=== PATIENT | female | born 1995 | race Caucasian/White ===

== ENCOUNTER 2017-12-15 21:44 | Observation (INO) | payer OTHER, MEDICAID ==
[~2017-12-15] VITALS: Ht 162.6 cm; Wt 89.0 kg
[2017-12-15] MEDS ORDERED: LABETALOL 100 MG TABLET ONE (22:58)
[2017-12-15] MEDS ORDERED: LABETALOL 200 MG TABLET PO ONE (23:00)
[2017-12-15] MEDS ORDERED: PLEASE ENTER ALLERGIES MC SCH (23:00)
[2017-12-15 23:07] LABS: BASOPHILS # (AUTO) 0.08 x10^3/uL (0-0.1); BASOPHILS % (AUTO) 1 % (0-1); EOSINOPHILS % (AUTO) 0 % (1-7); LYMPHOCYTES # (AUTO) 2.54 x10^3/uL (1-3.4); LYMPHOCYTES % (AUTO) 25 % (22-44); MD NO; MEAN CORPUSCULAR HEMOGLOBIN 34.4 pg (27.0-34.8); MEAN CORPUSCULAR HGB CONC 34.9 g/dL (32.4-35.8); MEAN CORPUSCULAR VOLUME 98.8 fL (80-100); MEAN PLATELET VOLUME 7.8 fL (7.4-10.4); MONOCYTES # (AUTO) 0.66 x10^3/uL (0.2-0.8); MONOCYTES % (AUTO) 7 % (2-9); NEUTROPHILS # (AUTO) 6.86 x10^3/uL (1.8-6.8); NEUTROPHILS % (AUTO) 68 % (42-75); PLATELET COUNT 307 x10^3/uL (130-400); RED BLOOD COUNT 3.77 x10^6/uL (3.82-5.3); RED CELL DISTRIBUTION WIDTH 13.3 % (9.6-15.2)
[2017-12-15 23:19] LABS: ALANINE AMINOTRANSFERASE 16 U/L (12-78); ALBUMIN 2.8 g/dL (3.4-5.0); ANION GAP 9 mmol/L (5-15); CALCIUM 9.2 mg/dL (8.5-10.1); CHLORIDE 109 mmol/L (98-107); CREATININE 0.69 mg/dL (0.55-1.02)
[2017-12-15 23:21] LABS: ALKALINE PHOSPHATASE 130 U/L (45-117); BILIRUBIN,TOTAL 0.2 mg/dL (0.2-1.0); TOTAL PROTEIN 6.8 g/dL (6.4-8.2)
[2017-12-15 23:23] LABS: BILIRUBIN, DIRECT < 0.1 mg/dL (0.1-0.2)
[2017-12-15 23:40] LABS: MICROSCOPIC INDICATED
== END 2017-12-16 01:35 | disposition home or self-care (01) ==
LOC: LDOP 21:44 → LDIP 23:35
PROVIDERS: ADMIT Obstetrics & Gynecology; ATTEND Obstetrics & Gynecology
DX: O42.92 Full-term premature rupture of membranes, unspecified as to length of time between rupture and onset of labor (principal); O13.3 Gestational [pregnancy-induced] hypertension without significant proteinuria, third trimester; Z3A.38 38 weeks gestation of pregnancy
CPT/HCPCS: 36415; 59025; 80053; 81001; 82248; 82570; 83615; 84156; 84550; 85025; 86850; 86900; 89060; G0378; Q0114

== ENCOUNTER 2017-12-18 22:01 | Inpatient (IN) | payer OTHER, MEDICAID ==
[~2017-12-18] VITALS: Ht 162.6 cm; Wt 89.0 kg
[~2017-12-18 22:01] MED LIST: PENICILLIN GK 5,000,000 UNITS in SODIUM CHLORIDE 0.9% 100 ML IV ONE
[2017-12-18] MEDS ORDERED: LACTATED RINGERS 1,000 ML IV SCH ×2 (22:02→22:30)
[2017-12-18] MEDS: OXYTOCIN 30U/ 0.9% NaCL 500ML 500 ML IV SCH ×2 (22:02→23:57)
[2017-12-18] MEDS ORDERED: OXYTOCIN 30U/ 0.9% NaCL 500ML 500 ML ONE (22:17)
[2017-12-18] MEDS ORDERED: METOCLOPRAMIDE 5 MG/ML, 2ML ONE (22:17)
[2017-12-18] MEDS ORDERED: NEWBORN KIT ONE (22:17)
[2017-12-18] MEDS ORDERED: SODIUM CITRATE/CITRIC ACID 30 ML UDC ONE (22:17)
[2017-12-18 22:28] LABS: BASOPHILS # (AUTO) 0.06 x10^3/uL (0-0.1); BASOPHILS % (AUTO) 1 % (0-1); EOSINOPHILS # (AUTO) 0.07 x10^3/uL (0-0.4); EOSINOPHILS % (AUTO) 1 % (1-7); LYMPHOCYTES # (AUTO) 2.66 x10^3/uL (1-3.4); LYMPHOCYTES % (AUTO) 25 % (22-44); MD NO; MEAN CORPUSCULAR HEMOGLOBIN 34.3 pg (27.0-34.8); MEAN CORPUSCULAR VOLUME 98.2 fL (80-100); MEAN PLATELET VOLUME 7.8 fL (7.4-10.4); MONOCYTES # (AUTO) 0.57 x10^3/uL (0.2-0.8); MONOCYTES % (AUTO) 5 % (2-9); NEUTROPHILS # (AUTO) 7.38 x10^3/uL (1.8-6.8); NEUTROPHILS % (AUTO) 69 % (42-75); PLATELET COUNT 293 x10^3/uL (130-400); RED BLOOD COUNT 3.87 x10^6/uL (3.82-5.3); RED CELL DISTRIBUTION WIDTH 13.2 % (9.6-15.2)
[2017-12-18] MEDS ORDERED: SODIUM CITRATE/CITRIC ACID 30 ML UDC PO ONE (22:30)
[2017-12-18] MEDS ORDERED: METOCLOPRAMIDE 5 MG/ML, 2ML IV ONE (22:30)
[2017-12-18] MEDS ORDERED: LACTATED RINGERS 1,000 ML IVBOLUS ONE (22:30)
[2017-12-18 22:39] LABS: ALBUMIN 2.9 g/dL (3.4-5.0); ANION GAP 10 mmol/L (5-15); CALCIUM 8.9 mg/dL (8.5-10.1); CHLORIDE 109 mmol/L (98-107)
[2017-12-18 22:42] LABS: ALANINE AMINOTRANSFERASE 20 U/L (12-78); ALKALINE PHOSPHATASE 141 U/L (45-117); BILIRUBIN,TOTAL 0.3 mg/dL (0.2-1.0); CREATININE 0.84 mg/dL (0.55-1.02)
[2017-12-18 22:43] LABS: BILIRUBIN, DIRECT < 0.1 mg/dL (0.1-0.2)
[2017-12-18] MEDS: LACTATED RINGERS 1,000 ML IV SCH ×2 (23:57)
[2017-12-19] MEDS ORDERED: MEPERIDINE/PF 50 MG/ML IVPush PRN
[2017-12-19] MEDS ORDERED: ACETAMINOPHEN 325 MG TABLET PO PRN ×3
[2017-12-19] MEDS ORDERED: BISACODYL 10 MG SUPP PR PRN
[2017-12-19] MEDS ORDERED: MEASLES,MUMPS&RUBELLA VACC/PF 0.5 ML SQ-VACC PRN
[2017-12-19] MEDS ORDERED: GLYCERIN ADULT SUPP PR PRN
[2017-12-19] MEDS ORDERED: METOCLOPRAMIDE 5 MG/ML, 2ML IV PRN
[2017-12-19] MEDS ORDERED: CARBOPROST TROMETHAMINE 250 MCG/ML, 1ML IM PRN
[2017-12-19] MEDS ORDERED: DIPH,PERTUSS(ACELL),TET VAC/PF NC IM-VACC PRN
[2017-12-19] MEDS ORDERED: MISOPROSTOL 200 MCG TABLET PR PRN
[2017-12-19] MEDS ORDERED: METHYLERGONOVINE 0.2 MG/ML IM PRN
[2017-12-19] MEDS ORDERED: CALCIUM CARBONATE 500 MG TAB.CHEW PO PRN
[2017-12-19] MEDS ORDERED: ONDANSETRON 2MG/ML, 2ML ONE (00:23)
[2017-12-19] MEDS ORDERED: EPINEPHRINE 1 MG/ML, 1ML ONE (01:00)
[2017-12-19] MEDS: KETOROLAC 30 MG/1 ML IV SCH ×4 (01:00→19:08)
[2017-12-19] MEDS ORDERED: OXYTOCIN 10 UNITS/ML, 1ML ONE (01:00)
[2017-12-19] MEDS ORDERED: CEFAZOLIN 1,000 MG ONE (01:00)
[2017-12-19] MEDS ORDERED: EPHEDRINE 50 MG/ML, 1ML ONE (01:00)
[2017-12-19] MEDS ORDERED: KETOROLAC 30 MG/1 ML ONE (01:14)
[2017-12-19] MEDS ORDERED: OXYTOCIN 30U/ 0.9% NaCL 500ML 500 ML ONE (01:32)
[2017-12-19] MEDS ORDERED: OXYcodone 5 MG/5 ML ORAL.SOL UDC ONE (02:01)
[2017-12-19] MEDS ORDERED: LABETALOL 5MG/ML, 20ML ONE (02:12)
[2017-12-19] MEDS ORDERED: LABETALOL 5MG/ML, 20ML IVPush PRN (02:30)
[2017-12-19] MEDS ORDERED: OXYcodone 5 MG/5 ML ORAL.SOL UDC PO PRN (02:30)
[2017-12-19] MEDS ORDERED: LABETALOL 200 MG TABLET ONE (02:39)
[2017-12-19] MEDS: LABETALOL 200 MG TABLET PO SCH ×2 (02:45→17:12)
[2017-12-19 03:40] VITALS: BP 148/99
[2017-12-19 06:15] VITALS: BP 150/98
[2017-12-19] MEDS: OXYcodone/APAP 5/325MG TABLET PO PRN ×2 (06:43→11:18)
[2017-12-19 07:00] VITALS: BP 158/91
[2017-12-19] MEDS: LACTATED RINGERS 1,000 ML IV SCH ×5 (07:57→23:57)
[2017-12-19] MEDS: OXYTOCIN 30U/ 0.9% NaCL 500ML 500 ML IV SCH ×3 (08:02→18:02)
[2017-12-19 08:18] LABS: CREATININE,URINE RANDOM 86.7 mg/dL
[2017-12-19] MEDS: PRENATAL VIT/IRON/FA 1 EACH TABLET PO SCH (09:00)
[2017-12-19 09:12] LABS: BASOPHILS # (AUTO) 0.03 x10^3/uL (0-0.1); BASOPHILS % (AUTO) 0 % (0-1); EOSINOPHILS # (AUTO) 0.02 x10^3/uL (0-0.4); EOSINOPHILS % (AUTO) 0 % (1-7); LYMPHOCYTES # (AUTO) 1.91 x10^3/uL (1-3.4); LYMPHOCYTES % (AUTO) 15 % (22-44); MD NO; MEAN CORPUSCULAR HEMOGLOBIN 32.9 pg (27.0-34.8); MEAN CORPUSCULAR HGB CONC 33.7 g/dL (32.4-35.8); MEAN CORPUSCULAR VOLUME 97.6 fL (80-100); MEAN PLATELET VOLUME 7.4 fL (7.4-10.4); MONOCYTES # (AUTO) 0.84 x10^3/uL (0.2-0.8); MONOCYTES % (AUTO) 6 % (2-9); NEUTROPHILS % (AUTO) 79 % (42-75); PLATELET COUNT 241 x10^3/uL (130-400); RED BLOOD COUNT 3.47 x10^6/uL (3.82-5.3); RED CELL DISTRIBUTION WIDTH 12.8 % (9.6-15.2)
[2017-12-19 11:31] VITALS: BP 137/89
[2017-12-19] MEDS: OXYcodone/APAP 10/325MG TABLET PO PRN ×2 (15:26→19:08)
[2017-12-19 15:30] VITALS: BP 133/87
[2017-12-19] MEDS: DOCUSATE 100 MG CAPSULE PO PRN (19:08)
[2017-12-19 19:15] VITALS: BP 133/82
[2017-12-20] VITALS (9 sets, daily range): BP systolic 129–169; BP diastolic 85–101
[2017-12-20] MEDS: SIMETHICONE 80 MG CHEW TAB PO PRN ×2 (00:04→06:22)
[2017-12-20] MEDS: OXYcodone/APAP 10/325MG TABLET PO PRN ×2 (00:04→04:38)
[2017-12-20] MEDS: KETOROLAC 30 MG/1 ML IV SCH ×4 (01:34→19:00)
[2017-12-20] MEDS: OXYTOCIN 30U/ 0.9% NaCL 500ML 500 ML IV SCH ×2 (04:02→14:02)
[2017-12-20] MEDS: LACTATED RINGERS 1,000 ML IV SCH ×5 (05:57→19:02)
[2017-12-20] MEDS: LABETALOL 200 MG TABLET PO SCH ×2 (06:22→17:31)
[2017-12-20] MEDS: PRENATAL VIT/IRON/FA 1 EACH TABLET PO SCH (07:24)
[2017-12-20] MEDS: DOCUSATE 100 MG CAPSULE PO PRN (07:24)
[2017-12-20] MEDS: OXYcodone/APAP 5/325MG TABLET PO PRN ×3 (11:27→22:00)
[2017-12-20 15:40] LABS: BASOPHILS # (AUTO) 0.03 x10^3/uL (0-0.1); BASOPHILS % (AUTO) 0 % (0-1); EOSINOPHILS % (AUTO) 0 % (1-7); LYMPHOCYTES # (AUTO) 1.93 x10^3/uL (1-3.4); LYMPHOCYTES % (AUTO) 17 % (22-44); MD NO; MEAN CORPUSCULAR HEMOGLOBIN 34.2 pg (27.0-34.8); MEAN CORPUSCULAR HGB CONC 34.5 g/dL (32.4-35.8); MEAN CORPUSCULAR VOLUME 99.1 fL (80-100); MEAN PLATELET VOLUME 7.2 fL (7.4-10.4); MONOCYTES # (AUTO) 0.49 x10^3/uL (0.2-0.8); MONOCYTES % (AUTO) 4 % (2-9); NEUTROPHILS # (AUTO) 8.72 x10^3/uL (1.8-6.8); NEUTROPHILS % (AUTO) 78 % (42-75); PLATELET COUNT 273 x10^3/uL (130-400); RED BLOOD COUNT 3.39 x10^6/uL (3.82-5.3); RED CELL DISTRIBUTION WIDTH 13.5 % (9.6-15.2)
[2017-12-20 15:50] LABS: ALANINE AMINOTRANSFERASE 15 U/L (12-78); ALBUMIN 2.4 g/dL (3.4-5.0); ANION GAP 8 mmol/L (5-15); CHLORIDE 108 mmol/L (98-107)
[2017-12-20 15:53] LABS: ALKALINE PHOSPHATASE 99 U/L (45-117); BILIRUBIN,TOTAL 0.2 mg/dL (0.2-1.0); CREATININE 0.84 mg/dL (0.55-1.02); TOTAL PROTEIN 6.2 g/dL (6.4-8.2)
[2017-12-20] MEDS ORDERED: MAGNESIUM SULF. PMX 20GM/500ML 500 ML IV ONE (18:05)
[2017-12-20] MEDS ORDERED: LACTATED RINGERS 1,000 ML IV PRN (18:31)
[2017-12-20] MEDS ORDERED: MAGNESIUM SULFATE PMX 4GM/100M 100 ML IVPB ONE (19:00)
[2017-12-20] MEDS: MAGNESIUM SULF. PMX 20GM/500ML 500 ML IV PRN (19:04)
[2017-12-20] MEDS ORDERED: KETOROLAC 30 MG/1 ML ONE (19:44)
[2017-12-20] MEDS ORDERED: OXYcodone/APAP 5/325MG TABLET ONE (21:51)
[2017-12-20] MEDS ORDERED: BUTALBIT/ACETAMIN/CAFF/CODEINE CAPSULE ONE (23:20)
[2017-12-20] MEDS: BUTALBIT/ACETAMIN/CAFF/CODEINE CAPSULE PO PRN (23:23)
[2017-12-21] MEDS: OXYTOCIN 30U/ 0.9% NaCL 500ML 500 ML IV SCH (00:02)
[2017-12-21] MEDS ORDERED: OXYcodone/APAP 5/325MG TABLET ONE ×4 (01:47→20:07)
[2017-12-21] MEDS: OXYcodone/APAP 5/325MG TABLET PO PRN ×4 (02:00→20:10)
[2017-12-21 02:55] LABS: BASOPHILS # (AUTO) 0.02 x10^3/uL (0-0.1); BASOPHILS % (AUTO) 0 % (0-1); EOSINOPHILS # (AUTO) 0.34 x10^3/uL (0-0.4); EOSINOPHILS % (AUTO) 3 % (1-7); LYMPHOCYTES # (AUTO) 2.64 x10^3/uL (1-3.4); LYMPHOCYTES % (AUTO) 24 % (22-44); MD NO; MEAN CORPUSCULAR HEMOGLOBIN 32.5 pg (27.0-34.8); MEAN CORPUSCULAR VOLUME 98.4 fL (80-100); MEAN PLATELET VOLUME 7.2 fL (7.4-10.4); MONOCYTES # (AUTO) 0.65 x10^3/uL (0.2-0.8); MONOCYTES % (AUTO) 6 % (2-9); NEUTROPHILS % (AUTO) 67 % (42-75); PLATELET COUNT 290 x10^3/uL (130-400); RED BLOOD COUNT 3.37 x10^6/uL (3.82-5.3); RED CELL DISTRIBUTION WIDTH 13.3 % (9.6-15.2)
[2017-12-21 03:08] LABS: ALANINE AMINOTRANSFERASE 16 U/L (12-78); ALBUMIN 2.4 g/dL (3.4-5.0); ANION GAP 9 mmol/L (5-15); CALCIUM 7.9 mg/dL (8.5-10.1); CHLORIDE 108 mmol/L (98-107); CREATININE 0.75 mg/dL (0.55-1.02)
[2017-12-21] MEDS ORDERED: BUTALBIT/ACETAMIN/CAFF/CODEINE CAPSULE ONE ×4 (03:09→16:37)
[2017-12-21 03:10] LABS: ALKALINE PHOSPHATASE 100 U/L (45-117); BILIRUBIN,TOTAL 0.2 mg/dL (0.2-1.0); TOTAL PROTEIN 6.1 g/dL (6.4-8.2)
[2017-12-21] MEDS: BUTALBIT/ACETAMIN/CAFF/CODEINE CAPSULE PO PRN ×4 (03:11→16:41)
[2017-12-21] MEDS ORDERED: MAGNESIUM SULF. PMX 20GM/500ML 500 ML IV ONE ×3 (03:12→22:19)
[2017-12-21 07:48] VITALS: BP 137/89
[2017-12-21] MEDS ORDERED: DOCUSATE 100 MG CAPSULE ONE (07:52)
[2017-12-21] MEDS ORDERED: PRENATAL VIT/IRON/FA 1 EACH TABLET ONE (07:52)
[2017-12-21] MEDS: DOCUSATE 100 MG CAPSULE PO PRN (07:54)
[2017-12-21] MEDS: PRENATAL VIT/IRON/FA 1 EACH TABLET PO SCH (07:54)
[2017-12-21] MEDS ORDERED: LABETALOL 200 MG TABLET ONE ×2 (08:00→18:34)
[2017-12-21] MEDS: LABETALOL 200 MG TABLET PO SCH ×2 (08:01→19:25)
[2017-12-21] MEDS ORDERED: ONDANSETRON 2MG/ML, 2ML ONE ×2 (12:24→20:10)
[2017-12-21] MEDS: ONDANSETRON 2MG/ML, 2ML IV PRN ×2 (12:26→20:11)
[2017-12-21] MEDS: MAGNESIUM SULF. PMX 20GM/500ML 500 ML IV PRN ×2 (12:30→22:28)
[2017-12-21 16:00] VITALS: BP 152/91
[2017-12-21] MEDS ORDERED: hydrALAzine 20 MG/ML, 1ML IV ONE (20:00)
[2017-12-21] MEDS: LACTATED RINGERS 1,000 ML IV SCH (21:23)
[2017-12-21] MEDS ORDERED: LABETALOL 5MG/ML, 20ML IVPush ONE (23:00)
[2017-12-21] MEDS ORDERED: LABETALOL 5MG/ML, 20ML ONE (23:02)
[2017-12-21 23:15] LABS: BASOPHILS # (AUTO) 0.02 x10^3/uL (0-0.1); BASOPHILS % (AUTO) 0 % (0-1); EOSINOPHILS # (AUTO) 0.39 x10^3/uL (0-0.4); EOSINOPHILS % (AUTO) 4 % (1-7); LYMPHOCYTES # (AUTO) 2.18 x10^3/uL (1-3.4); LYMPHOCYTES % (AUTO) 22 % (22-44); MD NO; MEAN CORPUSCULAR HEMOGLOBIN 33.8 pg (27.0-34.8); MEAN CORPUSCULAR HGB CONC 34.2 g/dL (32.4-35.8); MEAN CORPUSCULAR VOLUME 98.9 fL (80-100); MONOCYTES # (AUTO) 0.59 x10^3/uL (0.2-0.8); MONOCYTES % (AUTO) 6 % (2-9); NEUTROPHILS % (AUTO) 68 % (42-75); PLATELET COUNT 316 x10^3/uL (130-400); RED BLOOD COUNT 3.57 x10^6/uL (3.82-5.3); RED CELL DISTRIBUTION WIDTH 13.5 % (9.6-15.2)
[2017-12-21 23:28] LABS: ALANINE AMINOTRANSFERASE 43 U/L (12-78); ALBUMIN 2.5 g/dL (3.4-5.0); ANION GAP 7 mmol/L (5-15); CHLORIDE 103 mmol/L (98-107); CREATININE 0.82 mg/dL (0.55-1.02)
[2017-12-21 23:30] LABS: ALKALINE PHOSPHATASE 93 U/L (45-117); BILIRUBIN,TOTAL 0.3 mg/dL (0.2-1.0); TOTAL PROTEIN 6.6 g/dL (6.4-8.2)
[2017-12-21] MEDS ORDERED: METOCLOPRAMIDE 5 MG/ML, 2ML ONE (23:53)
[2017-12-22] MEDS ORDERED: LABETALOL 200 MG TABLET ONE ×3 (00:03→15:45)
[2017-12-22] MEDS: LABETALOL 200 MG TABLET PO SCH ×4 (00:05→20:07)
[2017-12-22 05:06] LABS: BASOPHILS # (AUTO) 0.04 x10^3/uL (0-0.1); BASOPHILS % (AUTO) 0 % (0-1); EOSINOPHILS # (AUTO) 0.23 x10^3/uL (0-0.4); EOSINOPHILS % (AUTO) 2 % (1-7); LYMPHOCYTES # (AUTO) 2.09 x10^3/uL (1-3.4); LYMPHOCYTES % (AUTO) 21 % (22-44); MD NO; MEAN CORPUSCULAR HGB CONC 34.3 g/dL (32.4-35.8); MEAN PLATELET VOLUME 7.1 fL (7.4-10.4); MONOCYTES # (AUTO) 0.54 x10^3/uL (0.2-0.8); MONOCYTES % (AUTO) 5 % (2-9); NEUTROPHILS # (AUTO) 7.02 x10^3/uL (1.8-6.8); NEUTROPHILS % (AUTO) 71 % (42-75); PLATELET COUNT 301 x10^3/uL (130-400); RED BLOOD COUNT 3.39 x10^6/uL (3.82-5.3); RED CELL DISTRIBUTION WIDTH 13.2 % (9.6-15.2)
[2017-12-22 05:17] LABS: ALBUMIN 2.4 g/dL (3.4-5.0); ANION GAP 9 mmol/L (5-15); CHLORIDE 105 mmol/L (98-107)
[2017-12-22 05:22] LABS: ALANINE AMINOTRANSFERASE 54 U/L (12-78); ALKALINE PHOSPHATASE 87 U/L (45-117); BILIRUBIN,TOTAL 0.5 mg/dL (0.2-1.0); CREATININE 0.82 mg/dL (0.55-1.02); TOTAL PROTEIN 6.3 g/dL (6.4-8.2)
[2017-12-22] MEDS ORDERED: DOCUSATE 100 MG CAPSULE ONE (07:42)
[2017-12-22] MEDS ORDERED: PRENATAL VIT/IRON/FA 1 EACH TABLET ONE (07:42)
[2017-12-22] MEDS: PRENATAL VIT/IRON/FA 1 EACH TABLET PO SCH (07:45)
[2017-12-22] MEDS: DOCUSATE 100 MG CAPSULE PO PRN (07:49)
[2017-12-22] MEDS ORDERED: MAGNESIUM SULF. PMX 20GM/500ML 500 ML IV ONE (11:53)
[2017-12-22] MEDS: MAGNESIUM SULF. PMX 20GM/500ML 500 ML IV PRN (11:55)
[2017-12-22 13:07] LABS: BASOPHILS # (AUTO) 0.02 x10^3/uL (0-0.1); BASOPHILS % (AUTO) 0 % (0-1); EOSINOPHILS # (AUTO) 0.28 x10^3/uL (0-0.4); EOSINOPHILS % (AUTO) 3 % (1-7); LYMPHOCYTES % (AUTO) 15 % (22-44); MD NO; MEAN CORPUSCULAR HGB CONC 34.3 g/dL (32.4-35.8); MEAN CORPUSCULAR VOLUME 99.1 fL (80-100); MEAN PLATELET VOLUME 7.1 fL (7.4-10.4); MONOCYTES # (AUTO) 0.27 x10^3/uL (0.2-0.8); MONOCYTES % (AUTO) 3 % (2-9); NEUTROPHILS # (AUTO) 7.23 x10^3/uL (1.8-6.8); NEUTROPHILS % (AUTO) 79 % (42-75); PLATELET COUNT 358 x10^3/uL (130-400); RED BLOOD COUNT 3.46 x10^6/uL (3.82-5.3); RED CELL DISTRIBUTION WIDTH 12.7 % (9.6-15.2)
[2017-12-22] MEDS: LACTATED RINGERS 1,000 ML IV SCH (13:08)
[2017-12-22 13:16] LABS: ALANINE AMINOTRANSFERASE 67 U/L (12-78); ALBUMIN 2.5 g/dL (3.4-5.0); ANION GAP 8 mmol/L (5-15); CALCIUM 7.4 mg/dL (8.5-10.1); CHLORIDE 107 mmol/L (98-107); CREATININE 1.03 mg/dL (0.55-1.02)
[2017-12-22 13:18] LABS: ALKALINE PHOSPHATASE 97 U/L (45-117); BILIRUBIN,TOTAL 0.2 mg/dL (0.2-1.0); TOTAL PROTEIN 6.6 g/dL (6.4-8.2)
[2017-12-22] MEDS ORDERED: IBUPROFEN 600 MG TABLET ONE (19:29)
[2017-12-22] MEDS: IBUPROFEN 600 MG TABLET PO PRN (19:31)
[2017-12-22] MEDS ORDERED: LABETALOL 100 MG TABLET ONE (20:04)
[2017-12-22] MEDS ORDERED: OXYcodone/APAP 5/325MG TABLET ONE (22:05)
[2017-12-22] MEDS: OXYcodone/APAP 5/325MG TABLET PO PRN (22:07)
[2017-12-23] VITALS (7 sets, daily range): BP systolic 131–174; BP diastolic 73–104
[2017-12-23] MEDS ORDERED: MAGNESIUM SULF. PMX 20GM/500ML 500 ML IV ONE (01:15)
[2017-12-23] MEDS: MAGNESIUM SULF. PMX 20GM/500ML 500 ML IV PRN (01:20)
[2017-12-23] MEDS: LABETALOL 200 MG TABLET PO SCH ×3 (04:09→20:00)
[2017-12-23] MEDS: LACTATED RINGERS 1,000 ML IV SCH (04:13)
[2017-12-23] MEDS ORDERED: OXYcodone/APAP 5/325MG TABLET ONE ×2 (04:28→10:50)
[2017-12-23] MEDS: OXYcodone/APAP 5/325MG TABLET PO PRN ×2 (04:30→10:51)
[2017-12-23 05:06] LABS: BASOPHILS # (AUTO) 0.01 x10^3/uL (0-0.1); BASOPHILS % (AUTO) 0 % (0-1); EOSINOPHILS # (AUTO) 0.35 x10^3/uL (0-0.4); EOSINOPHILS % (AUTO) 5 % (1-7); LYMPHOCYTES # (AUTO) 2.55 x10^3/uL (1-3.4); LYMPHOCYTES % (AUTO) 33 % (22-44); MD NO; MEAN CORPUSCULAR HEMOGLOBIN 33.5 pg (27.0-34.8); MEAN CORPUSCULAR VOLUME 98.6 fL (80-100); MEAN PLATELET VOLUME 6.9 fL (7.4-10.4); MONOCYTES # (AUTO) 0.44 x10^3/uL (0.2-0.8); MONOCYTES % (AUTO) 6 % (2-9); NEUTROPHILS # (AUTO) 4.32 x10^3/uL (1.8-6.8); NEUTROPHILS % (AUTO) 56 % (42-75); PLATELET COUNT 354 x10^3/uL (130-400); RED BLOOD COUNT 3.38 x10^6/uL (3.82-5.3); RED CELL DISTRIBUTION WIDTH 12.8 % (9.6-15.2)
[2017-12-23 05:22] LABS: ALANINE AMINOTRANSFERASE 57 U/L (12-78); ALBUMIN 2.5 g/dL (3.4-5.0); ANION GAP 9 mmol/L (5-15); CALCIUM 7.3 mg/dL (8.5-10.1); CHLORIDE 107 mmol/L (98-107); CREATININE 0.73 mg/dL (0.55-1.02)
[2017-12-23 05:24] LABS: ALKALINE PHOSPHATASE 88 U/L (45-117); BILIRUBIN,TOTAL 0.5 mg/dL (0.2-1.0); TOTAL PROTEIN 6.3 g/dL (6.4-8.2)
[2017-12-23] MEDS ORDERED: DOCUSATE 100 MG CAPSULE ONE (09:09)
[2017-12-23] MEDS ORDERED: PRENATAL VIT/IRON/FA 1 EACH TABLET ONE (09:10)
[2017-12-23] MEDS: PRENATAL VIT/IRON/FA 1 EACH TABLET PO SCH (09:15)
[2017-12-23] MEDS: DOCUSATE 100 MG CAPSULE PO PRN (09:15)
[2017-12-23] MEDS ORDERED: IBUPROFEN 600 MG TABLET ONE (10:49)
[2017-12-23] MEDS: IBUPROFEN 600 MG TABLET PO PRN (10:51)
[2017-12-23] MEDS ORDERED: GLYCERIN ADULT SUPP ONE (10:55)
[2017-12-24 00:10] VITALS: BP 164/102
[2017-12-24] MEDS: LABETALOL 200 MG TABLET PO SCH ×2 (03:58→11:54)
[2017-12-24 03:59] VITALS: BP 153/101
[2017-12-24] MEDS: IBUPROFEN 600 MG TABLET PO PRN (04:06)
[2017-12-24 04:12] LABS: BASOPHILS # (AUTO) 0.02 x10^3/uL (0-0.1); BASOPHILS % (AUTO) 0 % (0-1); EOSINOPHILS % (AUTO) 4 % (1-7); LYMPHOCYTES # (AUTO) 2.28 x10^3/uL (1-3.4); LYMPHOCYTES % (AUTO) 27 % (22-44); MD NO; MEAN CORPUSCULAR HEMOGLOBIN 33.6 pg (27.0-34.8); MEAN CORPUSCULAR VOLUME 98.9 fL (80-100); MEAN PLATELET VOLUME 6.8 fL (7.4-10.4); MONOCYTES # (AUTO) 0.52 x10^3/uL (0.2-0.8); MONOCYTES % (AUTO) 6 % (2-9); NEUTROPHILS # (AUTO) 5.34 x10^3/uL (1.8-6.8); NEUTROPHILS % (AUTO) 63 % (42-75); PLATELET COUNT 380 x10^3/uL (130-400); RED CELL DISTRIBUTION WIDTH 12.8 % (9.6-15.2)
[2017-12-24 04:15] LABS: ALANINE AMINOTRANSFERASE 73 U/L (12-78); ALBUMIN 2.6 g/dL (3.4-5.0); ANION GAP 10 mmol/L (5-15); BILIRUBIN, DIRECT 0.1 mg/dL (0.1-0.2); CALCIUM 8.3 mg/dL (8.5-10.1); CHLORIDE 109 mmol/L (98-107); CREATININE 0.79 mg/dL (0.55-1.02)
[2017-12-24 04:17] LABS: ALKALINE PHOSPHATASE 94 U/L (45-117); BILIRUBIN,TOTAL 0.3 mg/dL (0.2-1.0)
[2017-12-24 08:00] VITALS: BP 143/86
[2017-12-24] MEDS: DOCUSATE 100 MG CAPSULE PO PRN (09:29)
[2017-12-24 12:20] VITALS: BP 145/87
[2017-12-24] MEDS ORDERED: IBUP-1222 PO (12:52)
[2017-12-24] MEDS ORDERED: OXYC-302 PO (12:53)
[2017-12-24] MEDS ORDERED: NIFE10CA2 PO (12:58)
[2017-12-24] MEDS ORDERED: LABE300T2 PO (13:03)
== END 2017-12-24 15:02 | disposition home or self-care (01) | DRG 766 ==
LOC: LDIP 22:01 → 2NW 12-19 03:28 → LDIP 12-20 18:57 → 2NE 12-23 14:58 → 2NW 12-23 15:00
PROVIDERS: ADMIT Obstetrics & Gynecology; ATTEND Obstetrics & Gynecology
PROC: 10D00Z1 Extraction of Products of Conception, Low, Open Approach (ICD-10-PCS; principal; 2017-12-19)
DX: O32.1XX0 Maternal care for breech presentation, not applicable or unspecified (principal); Z37.0 Single live birth; F31.9 Bipolar disorder, unspecified; F41.9 Anxiety disorder, unspecified; O69.81X0 Labor and delivery complicated by cord around neck, without compression, not applicable or unspecified; O74.5 Spinal and epidural anesthesia-induced headache during labor and delivery; O99.344 Other mental disorders complicating childbirth; O99.52 Diseases of the respiratory system complicating childbirth; O99.824 Streptococcus B carrier state complicating childbirth; J45.909 Unspecified asthma, uncomplicated; O13.4 Gestational [pregnancy-induced] hypertension without significant proteinuria, complicating childbirth; Z3A.39 39 weeks gestation of pregnancy
CPT/HCPCS: 36415; 62273; 80053; 82248; 82570; 82803; 83735; 84112; 84156; 84550; 85025; 86850; 86900; 89060; J0171; J0690; J1885; J2175; J2405; J2590; J2765; J3475; J7120; Q0114